=== PATIENT | female | born 1995 | race Caucasian/White ===

== ENCOUNTER 2017-02-15 11:40 | Inpatient (IN) ==
[2017-02-15] MEDS ORDERED: STADOL IV PRN ×2 (20:45)
[2017-02-15] MEDS ORDERED: BRETHINE SUBQ PRN (20:45)
[2017-02-15] MEDS ORDERED: REGLAN PO ONE (20:45)
[2017-02-15] MEDS ORDERED: PEPCID PO PRN (20:45)
[2017-02-15] MEDS ORDERED: ZOFRAN IV PRN (20:45)
[2017-02-15] MEDS ORDERED: AMBIEN PO PRN (20:45)
[2017-02-15] MEDS ORDERED: PEPCID IV PRN (20:45)
[2017-02-15] MEDS ORDERED: TYLENOL PO PRN (20:45)
[2017-02-15] MEDS ORDERED: PEPCID PO ONE (20:45)
[2017-02-15] MEDS: LR 1,000 ML IV ONE (21:40)
[2017-02-15 21:56] LABS: BASO% 0.1 % (0.0-0.8); EOS# 0.09 X1000 (0.0-0.7); EOS% 0.7 % (0.0-10.0); HEMATOCRIT 38.7 % (37.0-47.0); HEMOGLOBIN 13.4 g/dL (12.0-16.0); IMM GRAN# 0.04 X1000 (0.0-0.04); IMM GRAN% 0.3 % (0.0-0.5); LYMPH# 3.68 X1000 (1.2-3.4); LYMPH% 27.9 % (20.5-51.1); MANUAL DIFF NEEDED? NO; MCH 29.8 PG (27-31); MCHC 34.6 g/dL (33-37); MCV 86.2 FL (81-99); MONO# 0.88 X1000 (0.11-0.59); MONO% 6.7 % (1.7-9.3); MPV 9.7 FL (7.4-10.4); NEUT% 64.3 % (42.2-75.2); PLT 348 X1000 (130-400); RBC 4.49 XMIL (4.2-5.4)
[2017-02-15] MEDS ORDERED: CYTOTEC PO ONE (23:00)
[2017-02-15 23:27] LABS: UR AMPHETAMINES QUAL NONE DETECTED (NONE DETECT); UR BARBITUATES QUAL NONE DETECTED (NONE DETECT); UR BENZODIAZEPIN QUAL NONE DETECTED (NONE DETECT); UR CANNABINOIDS QUAL NONE DETECTED (NONE DETECT); UR COCAINE QUAL NONE DETECTED (NONE DETECT); UR MDMA QUAL NONE DETECTED (NONE DETECT); UR METHADONE QUAL NONE DETECTED (NONE DETECT); UR METHAMPHETAMINE QUAL NONE DETECTED (NONE DETECT); UR OPIATES QUAL NONE DETECTED (NONE DETECT); UR OXYCODONE QUAL NONE DETECTED (NONE DETECT); UR PCP QUAL NONE DETECTED (NONE DETECT); UR TCA QUAL NONE DETECTED (NONE DETECT)
[2017-02-16] MEDS ORDERED: CYTOTEC PO SCH (03:00)
[2017-02-16] MEDS: STADOL IV PRN ×3 (05:40→09:30)
[2017-02-16] MEDS ORDERED: FENTANYL-BUPIV-NS 2 MCG-0.1% 200 ML EPIDURAL PRN (07:26)
[2017-02-16] MEDS ORDERED: LR 1,000 ML ONE (07:26)
[2017-02-16] MEDS: LR 1,000 ML IV ONE (07:30)
[2017-02-16] MEDS: PITOCIN 30 UNITS/LR 30 UNITS/500 ML IV.SOLN IV SCH ×2 (08:07→09:24)
[2017-02-16] MEDS ORDERED: MINERAL OIL PO ONE (08:23)
[2017-02-16] MEDS ORDERED: XYLOCAINE-MPF 1% INJ ONE (08:23)
[2017-02-16] MEDS ORDERED: PITOCIN IM PRN (10:14)
[2017-02-16] MEDS ORDERED: BENADRYL IV PRN (10:14)
[2017-02-16] MEDS ORDERED: BOOSTRIX VACCINE IM ONE (10:14)
[2017-02-16] MEDS ORDERED: XYLOCAINE-MPF 1% INJ PRN (10:14)
[2017-02-16] MEDS ORDERED: MINERAL OIL PO PRN (10:14)
[2017-02-16] MEDS ORDERED: PITOCIN 30 UNITS/LR 30 UNITS/500 ML IV.SOLN IV ONE (10:14)
[2017-02-16] MEDS ORDERED: HYDROXYZINE IM PRN (10:14)
[2017-02-16] MEDS ORDERED: PERI MEDS (DERMOPLAST/NUPERCAINAL/TUCKS) MISC PRN (10:14)
[2017-02-16] MEDS ORDERED: M-M-R II VACCINE SUBQ ONE (10:14)
[2017-02-16] MEDS ORDERED: AMBIEN PO PRN (10:14)
[2017-02-16] MEDS ORDERED: HYDROXYZINE PO PRN (10:14)
[2017-02-16] MEDS ORDERED: NORCO-5 PO PRN (10:14)
[2017-02-16] MEDS ORDERED: CYTOTEC PO PRN (10:14)
[2017-02-16] MEDS ORDERED: BENADRYL PO PRN (10:14)
[2017-02-16] MEDS ORDERED: PITOCIN 20 UNITS/LR 20 UNITS/1,000 ML IV.SOLN IV SCH (10:15)
--- NOTE | 2017-02-16 10:46 | OPERATIVE NOTE ---
PROCEDURE DATE : 02/16/2017 DELIVERY NOTE: The patient underwent sterile controlled spontaneous vaginal delivery of a viable female weighing 7 pounds 7 ounces with Apgars of 9 and 10. No nuchal, no dystocia. Cord was doubly clamped and cut. The was handed off. Placenta delivered spontaneously and intact. Uterus was firm with Pitocin and massage. Uterus, cervix and vagina were explored. Bilateral periurethral lacerations noted, hemostatic without repair. ESTIMATED BLOOD LOSS: 200 mL. COMPLICATIONS: None. cc: MD Robson Salazar MD
[2017-02-16] MEDS: MOTRIN PO PRN (11:55)
[2017-02-16] MEDS: NORCO-10 PO PRN ×3 (11:55→21:02)
[2017-02-16] MEDS: PERICOLACE PO SCH (20:57)
[2017-02-17] MEDS: NORCO-10 PO PRN ×5 (03:31→21:58)
[2017-02-17] MEDS: MOTRIN PO PRN ×3 (03:31→20:45)
[2017-02-17 06:23] LABS: HEMATOCRIT 36.6 % (37.0-47.0); HEMOGLOBIN 11.9 g/dL (12.0-16.0); MCH 28.7 PG (27-31); MCHC 32.5 g/dL (33-37); MCV 88.4 FL (81-99); MPV 9.9 FL (7.4-10.4); RBC 4.14 XMIL (4.2-5.4)
[2017-02-17] MEDS: PERICOLACE PO SCH (20:45)
[2017-02-18] MEDS: NORCO-10 PO PRN ×2 (04:37→08:38)
[2017-02-18] MEDS: MOTRIN PO PRN (04:37)
[2017-02-18 09:00] VITALS: BP 132/79
[2017-02-18] MEDS ORDERED: PNEUMOVAX 23 IM ONE (10:00)
== END 2017-02-18 11:00 | disposition home or self-care (01) ==
LOC: P.LD 20:34
PROVIDERS: ADMIT Obstetrics & Gynecology; ATTEND Obstetrics & Gynecology